=== PATIENT | female | born 1960 | race Caucasian/White ===

== ENCOUNTER 2017-07-21 13:23 | Emergency (ER) | payer OTHER ==
[~2017-07-21] VITALS: Ht 147.3 cm; Wt 72.7 kg
[~2017-07-21 13:23] MED LIST: GLIP5 PO; INSLAN SQ; METF10002 PO; OMEP20 PO; OXYC10TA93 PO; SENN-161 PO
[2017-07-21] MEDS ORDERED: MORPHINE SULFATE 4 MG/ML SYRINGE IVP ONE (13:30)
[2017-07-21] MEDS ORDERED: SODIUM CHLORIDE 0.9% 1,000 ML IV ONE (13:30)
[2017-07-21] MEDS ORDERED: ONDANSETRON HCL 4 MG/2 ML VIAL IVP ONE (13:30)
[2017-07-21] MEDS ORDERED: CELE200 PO (13:38)
[2017-07-21] MEDS ORDERED: LIDO700A TP (13:38)
[2017-07-21] MEDS ORDERED: GABA-529 PO (13:38)
[2017-07-21 13:42] LABS: GLUCOSE,POINT OF CARE 336 MG/DL (70-110)
[2017-07-21 14:19] LABS: APPEARANCE,URINE CLEAR (CLEAR); GLUCOSE, URINE (UA) >=1000 mg/dL (NEGATIVE); KETONES,URINE NEGATIVE (NEGATIVE); LEUKOCYTE ESTERASE ,URINE NEGATIVE (NEGATIVE); OCCULT BLOOD,URINE NEGATIVE (NEGATIVE); PROTEIN,URINE NEGATIVE (NEGATIVE)
[2017-07-21 14:25] LABS: ADD UA MICROSCOPIC YES; RBC,URINE None Seen /HPF (0-2); SQUAMOUS EPITHELIAL CELL,UR Rare /LPF (None Seen); WBC,URINE None Seen /HPF (0-5)
[2017-07-21 14:35] LABS: BASOPHILS # (AUTO) 0.04 K/uL (0.00-0.20); BASOPHILS % (AUTO) 0.7 % (0.0-2.0); EOSINOPHILS # (AUTO) 0.14 K/uL (0.00-0.70); EOSINOPHILS % (AUTO) 2.33 % (1.0-6.0); HEMATOCRIT 39.8 % (36-46); HEMOGLOBIN 13.5 g/dL (12.0-16.0); LYMPHOCYTES # (AUTO) 2.5 K/uL (1.0-4.8); LYMPHOCYTES % (AUTO) 40.9 % (22.0-44.0); MEAN CORPUSCULAR HEMOGLOBIN 30.3 pg (26.0-34.0); MEAN CORPUSCULAR HGB CONC 33.9 G/dL (31.0-37.0); MEAN CORPUSCULAR VOLUME 90 fL (80-100); MONOCYTES # (AUTO) 0.6 K/uL (0.1-1.0); MONOCYTES % (AUTO) 9.5 % (2.0-9.0); NEUTROPHILS # (AUTO) 2.8 K/uL (1.8-7.7); NEUTROPHILS % (AUTO) 46.6 % (40.0-70.0); PLATELET COUNT (AUTO) 207 K/uL (150-450); RED BLOOD CELL COUNT(AUTO) 4.45 MIL/uL (4.00-5.20); RED CELL DISTRIBUTION WIDTH 14.1 % (11.5-14.5)
[2017-07-21 14:44] LABS: ANION GAP 13 mmol/L (8-16); CALCIUM, TOTAL 9.1 mg/dL (8.8-10.5); CARBON DIOXIDE 27 mmol/L (22-29); CHLORIDE 100 mmol/L (98-107); CREATININE 0.67 mg/dL (0.60-1.30); GLOMERULAR FILTR. RATE CALC > 60 mL/min (>60); POTASSIUM 4.2 mmol/L (3.5-5.1); SODIUM SERUM 140 mmol/L (136-145); UREA NITROGEN, BLOOD 12 mg/dL (7-18)
[2017-07-21 14:50] LABS: ALANINE AMINOTRANSFERASE 56 U/L (12-78); ALBUMIN 3.7 g/dL (3.4-5.0); ASPARTATE AMINOTRANSFERASE 26 U/L (15-37); BILIRUBIN,TOTAL 0.6 mg/dL (0.1-1.0); TOTAL PROTEIN, SERUM 7.4 g/dL (6.4-8.2)
[2017-07-21 18:42] LABS: GLUCOSE,POINT OF CARE 158 MG/DL (70-110)
[2017-07-21 19:11] VITALS: BP 142/66
== END 2017-07-21 19:15 | disposition home or self-care (01) ==
LOC: EMS 13:24
DX: G89.29 Other chronic pain (principal); M54.5 Low back pain; R10.9 Unspecified abdominal pain; E11.9 Type 2 diabetes mellitus without complications; Z79.4 Long term (current) use of insulin
CPT/HCPCS: 36415; 71010; 72131; 74176; 80053; 80307; 81001; 82948; 82962; 83690; 84484; 85025; 93005; 96374; 96375; 99285; J2270; J2405; J7030

== ENCOUNTER 2022-11-10 17:05 | Inpatient (IN) | payer OTHER ==
[~2022-11-10] VITALS: Ht 147.3 cm; Wt 72.5 kg
[~2022-11-10 17:05] MED LIST changes: +CELE200 PO; +GABA-1216 PO; -GLIP5 PO; +LIDO700A15 TP; +METF-446 PO; -METF10002 PO; -OMEP20 PO; -OXYC10TA93 PO; -SENN-161 PO
[2022-11-10 20:30] VITALS: BP 146/75
[2022-11-10] MEDS ORDERED: MELATONIN 3 MG TABLET PO PRN (20:45)
[2022-11-10] MEDS ORDERED: ALBUTEROL SULFATE HFA 90 MCG/PUFF 8 GM INHALER IH PRN (20:45)
[2022-11-10] MEDS ORDERED: ACETAMINOPHEN 325 MG TABLET PO PRN (20:45)
[2022-11-10] MEDS ORDERED: BACLOFEN 10 MG TABLET PO PRN (20:45)
[2022-11-10] MEDS ORDERED: DEXTROSE 50%-WATER 25 GM/50 ML SYRINGE IVP PRN (20:45)
[2022-11-10 21:56] LABS: GLUCOMETER DEV NAME(LOC) 2WR.2B; GLUCOSE,POINT OF CARE 165 MG/DL (70-110)
[2022-11-10] MEDS: SENNOSIDES 8.6 MG TABLET PO SCH (21:57)
[2022-11-10] MEDS: DOCUSATE SODIUM 100 MG CAPSULE PO SCH (21:58)
[2022-11-10] MEDS: ETHYL ALCOHOL 62% ANTISEPTIC NASAL SANITIZER 0.6 ML AMPUL NASAL SCH (21:59)
[2022-11-10] MEDS: ATORVASTATIN CALCIUM 40 MG TABLET PO SCH (21:59)
[2022-11-10] MEDS: MELATONIN 5 MG TABLET PO SCH (21:59)
[2022-11-10] MEDS: -LIDODERM PATCH NOTE- MISC SCH (22:00)
[2022-11-10] MEDS: INSULIN LISPRO 100 UNITS/ML SQ PRN (22:02)
[2022-11-10] MEDS: GABAPENTIN 100 MG CAPSULE PO SCH (22:04)
[2022-11-11 07:01] LABS: GLUCOMETER DEV NAME(LOC) 2WR.1C; GLUCOSE,POINT OF CARE 228 MG/DL (70-110)
[2022-11-11 08:00] VITALS: BP 121/64
[2022-11-11 08:16] LABS: BASOPHILS % (AUTO) 0.9 % (0.0-2.0); EOSINOPHILS % (AUTO) 3.7 % (1.0-6.0); HEMATOCRIT 37.8 % (36-46); HEMOGLOBIN 12.6 g/dL (12.0-16.0); LYMPHOCYTES # (AUTO) 2.4 K/uL (1.0-4.8); MEAN CORPUSCULAR HEMOGLOBIN 29.4 pg (26.0-34.0); MEAN CORPUSCULAR HGB CONC 33.3 G/dL (31.0-37.0); MEAN CORPUSCULAR VOLUME 88 fL (80-100); MONOCYTES # (AUTO) 0.6 K/uL (0.1-1.0); MONOCYTES % (AUTO) 10.9 % (2.0-9.0); NEUTROPHILS # (AUTO) 2.5 K/uL (1.8-7.7); NEUTROPHILS % (AUTO) 43.5 % (40.0-70.0); PLATELET COUNT (AUTO) 213 K/uL (150-450); RED BLOOD CELL COUNT(AUTO) 4.28 MIL/uL (4.00-5.20); RED CELL DISTRIBUTION WIDTH 14.2 % (11.5-14.5)
[2022-11-11] MEDS: MetFORMIN HCL 500 MG TABLET PO SCH ×2 (08:16→16:43)
[2022-11-11] MEDS: SitaGLIPtin PHOSPHATE 50 MG TABLET PO SCH (08:17)
[2022-11-11] MEDS: ETHYL ALCOHOL 62% ANTISEPTIC NASAL SANITIZER 0.6 ML AMPUL NASAL SCH ×2 (08:17→22:10)
[2022-11-11] MEDS: GABAPENTIN 100 MG CAPSULE PO SCH ×3 (08:17→22:01)
[2022-11-11] MEDS: ASPIRIN 81 MG CHEWABLE TABLET PO SCH (08:17)
[2022-11-11] MEDS: DOCUSATE SODIUM 100 MG CAPSULE PO SCH (08:17)
[2022-11-11] MEDS: ENOXAPARIN SODIUM 40 MG/0.4 ML PF SYRINGE SQ SCH (08:18)
[2022-11-11] MEDS: LIDOCAINE 5% TRANSDERMAL PATCH TD SCH (08:19)
[2022-11-11] MEDS: INSULIN LISPRO 100 UNITS/ML SQ PRN ×4 (08:19→22:04)
[2022-11-11 08:31] LABS: ALANINE AMINOTRANSFERASE 46 U/L (12-78); ALBUMIN 3.6 g/dL (3.4-5.0); ALKALINE PHOSPHATASE 95 U/L (46-116); ANION GAP 2 mmol/L (8-16); ASPARTATE AMINOTRANSFERASE 22 U/L (15-37); BILIRUBIN,TOTAL 0.5 mg/dL (0.1-1.0); CALCIUM, TOTAL 9.4 mg/dL (8.8-10.5); CARBON DIOXIDE 34 mmol/L (22-29); CHLORIDE 101 mmol/L (98-107); GLOMERULAR FILTR. RATE CALC > 60 mL/min (>60); GLUCOSE,RANDOM 265 mg/dL (70-110); POTASSIUM 4.7 mmol/L (3.5-5.1); SODIUM SERUM 137 mmol/L (136-145); TOTAL PROTEIN, SERUM 7.3 g/dL (6.4-8.2); UREA NITROGEN, BLOOD 15 mg/dL (7-18)
[2022-11-11 15:31] LABS: GLUCOMETER DEV NAME(LOC) 2WR.1C; GLUCOSE,POINT OF CARE 208 MG/DL (70-110)
[2022-11-11 19:11] LABS: GLUCOMETER DEV NAME(LOC) 2WR.1C; GLUCOSE,POINT OF CARE 207 MG/DL (70-110)
[2022-11-11 20:30] VITALS: BP 116/61
[2022-11-11] MEDS: DOCUSATE SODIUM 250 MG CAPSULE PO SCH (21:59)
[2022-11-11] MEDS: ATORVASTATIN CALCIUM 40 MG TABLET PO SCH (21:59)
[2022-11-11] MEDS: SENNOSIDES 8.6 MG TABLET PO SCH (22:00)
[2022-11-11] MEDS: MELATONIN 5 MG TABLET PO SCH (22:01)
[2022-11-12 06:26] LABS: GLUCOMETER DEV NAME(LOC) 2WR.1C; GLUCOSE,POINT OF CARE 204 MG/DL (70-110)
[2022-11-12 08:12] VITALS: BP 131/68
[2022-11-12 08:21] LABS: GLUCOMETER DEV NAME(LOC) 2WR.2B; GLUCOSE,POINT OF CARE 180 MG/DL (70-110)
[2022-11-12] MEDS: ASPIRIN 81 MG CHEWABLE TABLET PO SCH (09:02)
[2022-11-12] MEDS: MetFORMIN HCL 500 MG TABLET PO SCH ×2 (09:02→16:32)
[2022-11-12] MEDS: ETHYL ALCOHOL 62% ANTISEPTIC NASAL SANITIZER 0.6 ML AMPUL NASAL SCH ×2 (09:02→20:47)
[2022-11-12] MEDS: GABAPENTIN 100 MG CAPSULE PO SCH ×3 (09:03→20:48)
[2022-11-12] MEDS: DOCUSATE SODIUM 250 MG CAPSULE PO SCH ×2 (09:03→20:47)
[2022-11-12] MEDS: SitaGLIPtin PHOSPHATE 50 MG TABLET PO SCH (09:03)
[2022-11-12] MEDS: ENOXAPARIN SODIUM 40 MG/0.4 ML PF SYRINGE SQ SCH (09:03)
[2022-11-12] MEDS: LIDOCAINE 5% TRANSDERMAL PATCH TD SCH (09:03)
[2022-11-12] MEDS: INSULIN LISPRO 100 UNITS/ML SQ PRN ×4 (09:12→20:53)
[2022-11-12 12:56] LABS: GLUCOMETER DEV NAME(LOC) 2WR.2B; GLUCOSE,POINT OF CARE 224 MG/DL (70-110)
[2022-11-12 17:41] LABS: GLUCOMETER DEV NAME(LOC) 2WR.2B; GLUCOSE,POINT OF CARE 183 MG/DL (70-110)
[2022-11-12 20:00] VITALS: BP 130/66
[2022-11-12] MEDS: -LIDODERM PATCH NOTE- MISC SCH (20:47)
[2022-11-12] MEDS: ATORVASTATIN CALCIUM 40 MG TABLET PO SCH (20:47)
[2022-11-12] MEDS: SENNOSIDES 8.6 MG TABLET PO SCH (20:48)
[2022-11-12] MEDS: MELATONIN 5 MG TABLET PO SCH (20:48)
[2022-11-12] MEDS ORDERED: INSULIN GLARGINE,HUM.REC.ANLOG 100 UNITS/ML SQ SCH (21:00)
[2022-11-12 21:26] LABS: GLUCOMETER DEV NAME(LOC) 2WR.2B; GLUCOSE,POINT OF CARE 228 MG/DL (70-110)
[2022-11-13 06:50] LABS: GLUCOMETER DEV NAME(LOC) 2WR.2B; GLUCOSE,POINT OF CARE 147 MG/DL (70-110)
[2022-11-13] MEDS: INSULIN LISPRO 100 UNITS/ML SQ PRN ×4 (08:06→20:37)
[2022-11-13] MEDS: MetFORMIN HCL 500 MG TABLET PO SCH ×2 (08:08→16:20)
[2022-11-13] MEDS: ASPIRIN 81 MG CHEWABLE TABLET PO SCH (08:08)
[2022-11-13] MEDS: ETHYL ALCOHOL 62% ANTISEPTIC NASAL SANITIZER 0.6 ML AMPUL NASAL SCH ×2 (08:08→20:30)
[2022-11-13] MEDS: DOCUSATE SODIUM 250 MG CAPSULE PO SCH ×2 (08:09→20:30)
[2022-11-13] MEDS: GABAPENTIN 100 MG CAPSULE PO SCH ×3 (08:09→20:31)
[2022-11-13] MEDS: SitaGLIPtin PHOSPHATE 50 MG TABLET PO SCH (08:09)
[2022-11-13] MEDS: LIDOCAINE 5% TRANSDERMAL PATCH TD SCH (08:09)
[2022-11-13] MEDS: ENOXAPARIN SODIUM 40 MG/0.4 ML PF SYRINGE SQ SCH (08:09)
[2022-11-13 08:55] VITALS: BP 126/64
[2022-11-13 17:56] LABS: GLUCOMETER DEV NAME(LOC) 2WR.2B; GLUCOSE,POINT OF CARE 231 MG/DL (70-110)
[2022-11-13 18:06] LABS: GLUCOMETER DEV NAME(LOC) 2WR.1C; GLUCOSE,POINT OF CARE 167 MG/DL (70-110)
[2022-11-13] MEDS: -LIDODERM PATCH NOTE- MISC SCH (20:27)
[2022-11-13 20:30] VITALS: BP 132/67
[2022-11-13] MEDS: ATORVASTATIN CALCIUM 40 MG TABLET PO SCH (20:31)
[2022-11-13] MEDS: MELATONIN 3 MG TABLET PO SCH (20:31)
[2022-11-13] MEDS: SENNOSIDES 8.6 MG TABLET PO SCH (20:31)
[2022-11-13] MEDS ORDERED: INSULIN GLARGINE,HUM.REC.ANLOG 100 UNITS/ML SQ SCH (21:00)
[2022-11-13 21:31] LABS: GLUCOMETER DEV NAME(LOC) 2WR.2B; GLUCOSE,POINT OF CARE 243 MG/DL (70-110)
[2022-11-13] MEDS ORDERED: GLIP10TA10 PO (22:42)
[2022-11-13] MEDS ORDERED: INSLAN SQ (22:42)
[2022-11-14] MEDS: DOCUSATE SODIUM 283 MG/5 ML MINI-ENEMA PR PRN (02:49)
[2022-11-14 06:51] LABS: GLUCOMETER DEV NAME(LOC) 2WR.1C; GLUCOSE,POINT OF CARE 230 MG/DL (70-110)
[2022-11-14] MEDS: ETHYL ALCOHOL 62% ANTISEPTIC NASAL SANITIZER 0.6 ML AMPUL NASAL SCH ×2 (08:27→20:46)
[2022-11-14] MEDS: DOCUSATE SODIUM 250 MG CAPSULE PO SCH ×2 (08:27→20:46)
[2022-11-14] MEDS: MetFORMIN HCL 500 MG TABLET PO SCH ×2 (08:28→16:57)
[2022-11-14] MEDS: SitaGLIPtin PHOSPHATE 50 MG TABLET PO SCH (08:28)
[2022-11-14] MEDS: GABAPENTIN 100 MG CAPSULE PO SCH ×3 (08:29→20:45)
[2022-11-14] MEDS: ASPIRIN 81 MG CHEWABLE TABLET PO SCH (08:29)
[2022-11-14] MEDS: ENOXAPARIN SODIUM 40 MG/0.4 ML PF SYRINGE SQ SCH (08:37)
[2022-11-14] MEDS: INSULIN LISPRO 100 UNITS/ML SQ PRN ×3 (08:46→17:40)
[2022-11-14 09:37] VITALS: BP 131/58
[2022-11-14 13:06] LABS: GLUCOMETER DEV NAME(LOC) 2WR.2B; GLUCOSE,POINT OF CARE 185 MG/DL (70-110)
[2022-11-14] MEDS: LIDOCAINE 5% TRANSDERMAL PATCH TD SCH (15:40)
[2022-11-14] MEDS: FAMOTIDINE 20 MG TABLET PO SCH (16:56)
[2022-11-14 18:10] LABS: GLUCOMETER DEV NAME(LOC) 2WR.2B; GLUCOSE,POINT OF CARE 213 MG/DL (70-110)
[2022-11-14 20:30] VITALS: BP 142/72
[2022-11-14] MEDS: SENNOSIDES 8.6 MG TABLET PO SCH (20:45)
[2022-11-14] MEDS: -LIDODERM PATCH NOTE- MISC SCH (20:46)
[2022-11-14] MEDS: ATORVASTATIN CALCIUM 40 MG TABLET PO SCH (20:46)
[2022-11-14] MEDS: MELATONIN 3 MG TABLET PO SCH (20:46)
[2022-11-14] MEDS: INSULIN GLARGINE,HUM.REC.ANLOG 100 UNITS/ML SQ SCH (21:00)
[2022-11-14 21:27] LABS: GLUCOMETER DEV NAME(LOC) 2WR.1C; GLUCOSE,POINT OF CARE 120 MG/DL (70-110)
[2022-11-14] MEDS ORDERED: SITA50 PO (23:26)
[2022-11-14] MEDS ORDERED: DOCU-350 PO (23:26)
[2022-11-14] MEDS ORDERED: ASPI-1450 PO (23:26)
[2022-11-14] MEDS ORDERED: LIDO700A15 TP (23:26)
[2022-11-14] MEDS ORDERED: ATOR40TA28 PO (23:26)
[2022-11-14] MEDS ORDERED: INSU100V SQ (23:26)
[2022-11-14] MEDS ORDERED: FAMO20 PO (23:26)
[2022-11-14] MEDS ORDERED: GABA-1216 PO (23:34)
[2022-11-15] MEDS: FAMOTIDINE 20 MG TABLET PO SCH ×2 (06:26→15:56)
[2022-11-15 08:11] VITALS: BP 104/60
[2022-11-15] MEDS: MetFORMIN HCL 500 MG TABLET PO SCH ×2 (09:32→17:29)
[2022-11-15] MEDS: DOCUSATE SODIUM 250 MG CAPSULE PO SCH ×2 (09:33→20:22)
[2022-11-15] MEDS: ENOXAPARIN SODIUM 40 MG/0.4 ML PF SYRINGE SQ SCH (09:33)
[2022-11-15] MEDS: ASPIRIN 81 MG CHEWABLE TABLET PO SCH (09:33)
[2022-11-15] MEDS: GABAPENTIN 100 MG CAPSULE PO SCH ×3 (09:34→20:22)
[2022-11-15] MEDS: SitaGLIPtin PHOSPHATE 50 MG TABLET PO SCH (09:34)
[2022-11-15] MEDS: ETHYL ALCOHOL 62% ANTISEPTIC NASAL SANITIZER 0.6 ML AMPUL NASAL SCH ×2 (09:42→20:23)
[2022-11-15] MEDS: LIDOCAINE 5% TRANSDERMAL PATCH TD SCH (09:45)
[2022-11-15] MEDS: INSULIN LISPRO 100 UNITS/ML SQ PRN ×4 (10:00→20:25)
[2022-11-15 12:16] LABS: GLUCOMETER DEV NAME(LOC) 2WR.2B; GLUCOSE,POINT OF CARE 154 MG/DL (70-110)
[2022-11-15 12:51] LABS: GLUCOMETER DEV NAME(LOC) 2WR.2B; GLUCOSE,POINT OF CARE 165 MG/DL (70-110)
[2022-11-15 17:36] LABS: GLUCOMETER DEV NAME(LOC) 2WR.2B; GLUCOSE,POINT OF CARE 146 MG/DL (70-110)
[2022-11-15] MEDS ORDERED: ALBU8HFA IH (18:51)
[2022-11-15] MEDS ORDERED: GLIP10TA9 PO (18:51)
[2022-11-15 20:10] VITALS: BP 119/67
[2022-11-15] MEDS: MELATONIN 3 MG TABLET PO SCH (20:22)
[2022-11-15] MEDS: SENNOSIDES 8.6 MG TABLET PO SCH (20:23)
[2022-11-15] MEDS: -LIDODERM PATCH NOTE- MISC SCH (20:23)
[2022-11-15] MEDS: ATORVASTATIN CALCIUM 40 MG TABLET PO SCH (20:23)
[2022-11-15] MEDS: INSULIN GLARGINE,HUM.REC.ANLOG 100 UNITS/ML SQ SCH (20:26)
[2022-11-15 21:01] LABS: GLUCOMETER DEV NAME(LOC) 2WR.2B; GLUCOSE,POINT OF CARE 162 MG/DL (70-110)
[2022-11-16] MEDS: FAMOTIDINE 20 MG TABLET PO SCH ×2 (06:28→16:40)
[2022-11-16 08:27] VITALS: BP 116/62
[2022-11-16] MEDS: LIDOCAINE 5% TRANSDERMAL PATCH TD SCH (08:31)
[2022-11-16] MEDS: SitaGLIPtin PHOSPHATE 50 MG TABLET PO SCH (08:31)
[2022-11-16] MEDS: ETHYL ALCOHOL 62% ANTISEPTIC NASAL SANITIZER 0.6 ML AMPUL NASAL SCH ×2 (08:31→21:11)
[2022-11-16] MEDS: MetFORMIN HCL 500 MG TABLET PO SCH ×2 (08:31→16:50)
[2022-11-16] MEDS: DOCUSATE SODIUM 250 MG CAPSULE PO SCH ×2 (08:32→21:23)
[2022-11-16] MEDS: ASPIRIN 81 MG CHEWABLE TABLET PO SCH (08:32)
[2022-11-16] MEDS: ENOXAPARIN SODIUM 40 MG/0.4 ML PF SYRINGE SQ SCH (08:32)
[2022-11-16] MEDS: GABAPENTIN 100 MG CAPSULE PO SCH ×3 (08:32→21:23)
[2022-11-16] MEDS: INSULIN LISPRO 100 UNITS/ML SQ PRN ×3 (12:23→21:27)
[2022-11-16 12:52] LABS: GLUCOMETER DEV NAME(LOC) 2WR.2B; GLUCOSE,POINT OF CARE 190 MG/DL (70-110)
[2022-11-16 18:26] LABS: GLUCOMETER DEV NAME(LOC) 2WR.2B; GLUCOSE,POINT OF CARE 200 MG/DL (70-110)
[2022-11-16] MEDS ORDERED: MAGNESIUM HYDROXIDE SUSPENSION 30 ML UDCUP PO ONE (18:30)
[2022-11-16 19:06] LABS: GLUCOMETER DEV NAME(LOC) 2WR.1C; GLUCOSE,POINT OF CARE 119 MG/DL (70-110)
[2022-11-16 20:00] VITALS: BP 133/74
[2022-11-16] MEDS: ATORVASTATIN CALCIUM 40 MG TABLET PO SCH (21:23)
[2022-11-16] MEDS: SENNOSIDES 8.6 MG TABLET PO SCH (21:23)
[2022-11-16] MEDS: MELATONIN 3 MG TABLET PO SCH (21:23)
[2022-11-16 21:26] LABS: GLUCOMETER DEV NAME(LOC) 2WR.2B; GLUCOSE,POINT OF CARE 158 MG/DL (70-110)
[2022-11-16] MEDS: INSULIN GLARGINE,HUM.REC.ANLOG 100 UNITS/ML SQ SCH (21:26)
[2022-11-16] MEDS: -LIDODERM PATCH NOTE- MISC SCH (21:30)
[2022-11-17] MEDS: FAMOTIDINE 20 MG TABLET PO SCH ×2 (06:08→17:59)
[2022-11-17] MEDS: DOCUSATE SODIUM 283 MG/5 ML MINI-ENEMA PR PRN ×2 (06:08→06:43)
[2022-11-17 06:51] LABS: GLUCOMETER DEV NAME(LOC) 2WR.2B; GLUCOSE,POINT OF CARE 123 MG/DL (70-110)
[2022-11-17] MEDS: ENOXAPARIN SODIUM 40 MG/0.4 ML PF SYRINGE SQ SCH (08:13)
[2022-11-17] MEDS: ASPIRIN 81 MG CHEWABLE TABLET PO SCH (08:14)
[2022-11-17] MEDS: LIDOCAINE 5% TRANSDERMAL PATCH TD SCH (08:14)
[2022-11-17] MEDS: MetFORMIN HCL 500 MG TABLET PO SCH ×2 (08:14→17:59)
[2022-11-17] MEDS: SitaGLIPtin PHOSPHATE 50 MG TABLET PO SCH (08:15)
[2022-11-17] MEDS: DOCUSATE SODIUM 250 MG CAPSULE PO SCH ×2 (08:15→20:32)
[2022-11-17] MEDS: GABAPENTIN 100 MG CAPSULE PO SCH ×3 (08:15→20:32)
[2022-11-17] MEDS: ETHYL ALCOHOL 62% ANTISEPTIC NASAL SANITIZER 0.6 ML AMPUL NASAL SCH ×2 (08:16→20:56)
[2022-11-17 10:51] VITALS: BP 124/63
[2022-11-17] MEDS: INSULIN LISPRO 100 UNITS/ML SQ PRN ×3 (12:10→21:54)
[2022-11-17 13:16] LABS: GLUCOMETER DEV NAME(LOC) 2WR.2B; GLUCOSE,POINT OF CARE 152 MG/DL (70-110)
[2022-11-17 18:56] LABS: GLUCOMETER DEV NAME(LOC) 2WR.2B; GLUCOSE,POINT OF CARE 183 MG/DL (70-110)
[2022-11-17 20:18] VITALS: BP 141/72
[2022-11-17] MEDS: ATORVASTATIN CALCIUM 40 MG TABLET PO SCH (20:32)
[2022-11-17] MEDS: SENNOSIDES 8.6 MG TABLET PO SCH (20:33)
[2022-11-17] MEDS: MELATONIN 3 MG TABLET PO SCH (20:57)
[2022-11-17] MEDS: -LIDODERM PATCH NOTE- MISC SCH (20:57)
[2022-11-17] MEDS: INSULIN GLARGINE,HUM.REC.ANLOG 100 UNITS/ML SQ SCH (21:51)
[2022-11-18 06:51] LABS: GLUCOMETER DEV NAME(LOC) 2WR.1C; GLUCOSE,POINT OF CARE 149 MG/DL (70-110)
[2022-11-18 07:15] LABS: GLUCOMETER DEV NAME(LOC) 2WR.1C; GLUCOSE,POINT OF CARE 169 MG/DL (70-110)
[2022-11-18] MEDS: INSULIN LISPRO 100 UNITS/ML SQ PRN ×2 (08:44→12:28)
[2022-11-18] MEDS: ENOXAPARIN SODIUM 40 MG/0.4 ML PF SYRINGE SQ SCH (08:44)
[2022-11-18] MEDS: ETHYL ALCOHOL 62% ANTISEPTIC NASAL SANITIZER 0.6 ML AMPUL NASAL SCH (08:50)
[2022-11-18] MEDS: DOCUSATE SODIUM 250 MG CAPSULE PO SCH (08:51)
[2022-11-18] MEDS: FAMOTIDINE 20 MG TABLET PO SCH (08:51)
[2022-11-18] MEDS: SitaGLIPtin PHOSPHATE 50 MG TABLET PO SCH (08:51)
[2022-11-18] MEDS: ASPIRIN 81 MG CHEWABLE TABLET PO SCH (08:52)
[2022-11-18] MEDS: GABAPENTIN 100 MG CAPSULE PO SCH (08:52)
[2022-11-18] MEDS: MetFORMIN HCL 500 MG TABLET PO SCH (08:52)
[2022-11-18] MEDS: LIDOCAINE 5% TRANSDERMAL PATCH TD SCH (08:53)
[2022-11-18 09:30] VITALS: BP 126/72
[2022-11-18] MEDS ORDERED: INSLAN SQ ×2 (11:50)
[2022-11-18] MEDS ORDERED: GABA-1216 PO (11:50)
[2022-11-18] MEDS ORDERED: DOCU-350 PO (11:50)
[2022-11-18] MEDS ORDERED: ASPI81 PO (11:50)
[2022-11-18] MEDS ORDERED: LIDO700A30 TD (11:50)
[2022-11-18] MEDS ORDERED: SENN-187 PO (11:50)
[2022-11-18] MEDS ORDERED: ATOR40TA71 PO (11:50)
[2022-11-18] MEDS ORDERED: FAMO20 PO (11:50)
[2022-11-18] MEDS ORDERED: INSU100V SQ (11:50)
[2022-11-18] MEDS ORDERED: SITA50 PO (11:50)
[2022-11-18] MEDS ORDERED: METF-1211 PO (11:50)
[2022-11-18 14:56] LABS: GLUCOMETER DEV NAME(LOC) 2WR.2B; GLUCOSE,POINT OF CARE 169 MG/DL (70-110)
[2022-11-18] MEDS ORDERED: INSULIN GLARGINE,HUM.REC.ANLOG 100 UNITS/ML SQ SCH (21:00)
== END 2022-11-18 13:45 | disposition home or self-care (01) | DRG 45 ==
LOC: 2WR 18:30
PROVIDERS: ADMIT Physical Medicine & Rehabilitation; ATTEND Physical Medicine & Rehabilitation
DX: I63.29 Cerebral infarction due to unspecified occlusion or stenosis of other precerebral arteries (principal); K76.0 Fatty (change of) liver, not elsewhere classified; G81.94 Hemiplegia, unspecified affecting left nondominant side; E11.65 Type 2 diabetes mellitus with hyperglycemia; E66.9 Obesity, unspecified; E78.00 Pure hypercholesterolemia, unspecified; G89.29 Other chronic pain; K59.00 Constipation, unspecified; R13.10 Dysphagia, unspecified; R41.89 Other symptoms and signs involving cognitive functions and awareness; R47.1 Dysarthria and anarthria; M54.50 Low back pain, unspecified; Z53.29 Procedure and treatment not carried out because of patient's decision for other reasons; Z63.5 Disruption of family by separation and divorce; Z98.1 Arthrodesis status; Z79.82 Long term (current) use of aspirin; Z79.84 Long term (current) use of oral hypoglycemic drugs; Z79.4 Long term (current) use of insulin; Z79.899 Other long term (current) drug therapy; Z68.33 Body mass index [BMI] 33.0-33.9, adult
CPT/HCPCS: 74019; 80053; 82962; 85025; 87081; 92507; 92523; 93970; 97112; 97116; 97162; 97167; 97530; 97535; 99366; J1650; J1815; Q9967